=== PATIENT | female | born 1965 | race Caucasian/White ===

== ENCOUNTER 2019-10-06 19:29 | Emergency (ER) | payer SELFPAY ==
--- NOTE | 2019-10-06 19:41 | EDM.PDOC ---
ED HPI GENERAL MEDICAL PROBLEM - General Chief Complaint: General Stated Complaint: MEDICAL CLEARANCE-LAW ENFORCEMENT Time Seen by Provider: 10/06/19 19:31 Source of Information: Reports: Patient History Limitations: Reports: No Limitations - History of Present Illness INITIAL COMMENTS - FREE TEXT/NARRATIVE: HISTORY AND PHYSICAL: History of present illness: Patient is a 54-year-old female who presents to the emergency room with law enforcement for medical clearance exam. Patient currently has no complaints or concerns. Law enforcement brought her for evaluation as the patient states she was indirectly exposed to COVID-19 a few weeks ago, she states she is finishing her self quarantine although has been asymptomatic. Patient denies any fever, chills, headache, change in vision, syncope or near syncope. Denies any chest pain, back pain, shortness of breath or cough. Denies any GI or symptoms. Patient has been eating and drinking appropriately. Denies any alcohol or drug abuse. Review of systems: As per history of present illness and below otherwise all systems reviewed and negative. Past medical history: As per history of present illness and as reviewed below otherwise noncontributory. Surgical history: As per history of present illness and as reviewed below otherwise noncontributory. Social history: See social history for further information Family history: As per history of present illness and as reviewed below otherwise noncontributory. Physical exam: General: Developed and well-nourished 54-year-old female. Alert and oriented. Nontoxic-appearing and in no acute distress. Vital signs are stable and have been reviewed by me. Patient is accompanied by law enforcement and currently in hand cuffs. HEENT: Atraumatic, normocephalic, pupils equal and reactive bilaterally, negative for conjunctival pallor or scleral icterus, mucous membranes moist, TMs normal bilaterally, throat clear, neck supple, nontender, trachea midline. No drooling or trismus noted. No meningeal signs. No hot potato voice noted. Lungs: Clear to auscultation, breath sounds equal bilaterally, chest nontender. Heart: S1S2, regular rate and rhythm without overt murmur Abdomen: Soft, nondistended, nontender. Skin: Intact, warm, dry. No lesions or rashes noted. Extremities: Atraumatic, moves all extremities per self without difficulty or deficits, negative for cords or calf pain. Neurovascular unremarkable. Neuro: Awake, alert, oriented. Cranial nerves II through XII unremarkable. Cerebellum unremarkable. Motor and sensory unremarkable throughout. Exam n onfocal. Notes: Patient's vital signs are stable. Her physical exam is unremarkable. Patient is asymptomatic and declines wanting any diagnostics at this time. Patient will be discharged into the custody of law enforcement. Supportive care measures were reviewed and discussed. Voices understanding and is agreeable to plan of care. Denies any further questions or concerns at this time. Diagnostics: None Therapeutics: None Prescription: None Impression: Encounter for medical screening exam. Plan: 1. Please use Tylenol and/or Ibuprofen as needed for pain and fever management. 2. Please follow up with your primary care provider. 3. Return to the ED as needed as discussed. Definitive disposition and diagnosis as appropriate pending reevaluation and review of above. - Related Data Allergies Allergy/AdvReac Type Severity Reaction Status Date / Time No Known Allergies Allergy Verified 10/06/19 19:49 Home Meds: Home Meds . [No Known Home Meds] 10/06/19 [History] ED ROS GENERAL - Review of Systems Review Of Systems: Comprehensive ROS is negative, except as noted in HPI. ED EXAM, GENERAL - Physical Exam Exam: See Below (See dictation) Course - Vital Signs Last Recorded V/S: Last Vital Signs Temp 98.1 F 10/06/19 19:45 Pulse 94 10/06/19 19:45 Resp 18 10/06/19 19:45 BP 140/90 10/06/19 19:45 Pulse Ox 99 10/06/19 19:45 Departure - Departure Time of Disposition: 19:46 Disposition: Home, Self-Care 01 Clinical Impression: Encounter for medical screening examination - Discharge Information Instructions: Medical Screening Exam Referrals: PCP,None [Primary Care Provider] - Forms: ED Department Discharge Additional Instructions: The following information is given to patients seen in the emergency department who are being discharged to home. This information is to outline your options for follow-up care. We provide all patients seen in our emergency department with a follow-up referral. The need for follow-up, as well as the timing and circumstances, are variable depending upon the specifics of your emergency department visit. If you don't have a primary care physician on staff, we will provide you with a referral. We always advise you to contact your personal physician following an emergency department visit to inform them of the circumstance of the visit and for follow-up with them and/or the need for any referrals to a consulting specialist. The emergency department will also refer you to a specialist when appropriate. This referral assures that you have the opportunity for follow-up care with a specialist. All of these measure are taken in an effort to provide you with optimal care, which includes your follow-up. Under all circumstances we always encourage you to contact your private physician who remains a resource for coordinating your care. When calling for follow-up care, please make the office aware that this follow-up is from your recent emergency room visit. If for any reason you are refused follow-up, please contact the [facility] Emergency Department at and asked to speak to the emergency department charge nurse. [facility] [address] [place] [id number] [id number] Thank you for choosing the [facility] emergency department in [place] for your medical needs today. It was a pleasure caring for you. Today you were seen in the emergency department for medical screening exam. 1. Please use Tylenol and/or Ibuprofen as needed for pain and fever management. 2. Please follow up with your primary care provider. 3. Return to the ED as needed as discussed. Sepsis Event Note (ED) - Focused Exam Vital Signs: Vital Signs Temp Pulse Resp BP Pulse Ox 10/06/19 19:45 98.1 F 94 18 140/90 99
== END 2019-10-06 20:04 ==
LOC: MW.ED 19:29
DX: Z02.89 Encounter for other administrative examinations (principal)
CPT/HCPCS: 99282; 99283

== ENCOUNTER 2020-02-22 01:25 | Observation (INO) | payer OTHER ==
[2020-02-22] MEDS ORDERED: Acetaminophen 500 MG Tab PO ONE (01:29)
[2020-02-22] MEDS ORDERED: Morphine 2 MG/ML SYRINGE IVPUSH ONE (01:29)
[2020-02-22] MEDS ORDERED: Ketorolac 30 MG/ML SDV IVPUSH ONE (01:29)
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
[2020-02-22] MEDS ORDERED: Lidocaine 5% Oint 35.44 GM Tube TOP ONE (02:08)
[2020-02-22] MEDS ORDERED: Bacitracin Oint 1 GM U/D Packet TOP ONE (02:08)
[2020-02-22] MEDS ORDERED: LORazepam 2 MG/ML SDV IVPUSH ONE (02:09)
[2020-02-22 02:13] LABS: BLOOD UREA NITROGEN,BUN 17 mg/dL (7.0-18.0); CARBON DIOXIDE,CO2 24.5 mmol/L (21.0-32.0); CHLORIDE,CL 100 mmol/L (98-107); GLUCOSE RANDOM 131 mg/dL (74-106); POTASSIUM,K 3.9 mmol/L (3.5-5.1); SODIUM,NA 138 mmol/L (136-145)
[2020-02-22] MEDS ORDERED: Bacitracin Oint 28.35 GM Tube TOP STA (02:15)
[2020-02-22] MEDS ORDERED: Lidocaine 2% Jelly 30 ML Tube STA (02:24)
[2020-02-22] MEDS ORDERED: Lactated Ringers 1,000 ML IV SCH (02:45)
[2020-02-22 02:52] LABS: ACETAMINOPHEN <2.0 ug/mL
[2020-02-22] MEDS ORDERED: diphenhydrAMINE 50 MG/ML SDV IVPUSH ONE (04:33)
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
[2020-02-22] MEDS ORDERED: Acetaminophen 500 MG Tab PO PRN (10:12)
[2020-02-22] MEDS ORDERED: Ibuprofen 400 MG Tab PO PRN (10:13)
[2020-02-22] MEDS ORDERED: Aloe Vera/Sodium Chloride Gel 14.1 GM Tube NAS SCH (10:15)
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
== END 2020-02-22 16:00 | disposition home or self-care (01) ==
LOC: MW.ED 01:25 → MW.MS 02:39
PROVIDERS: ADMIT Internal Medicine; ATTEND Internal Medicine
DX: T24.109A Burn of first degree of unspecified site of unspecified lower limb, except ankle and foot, initial encounter (principal); T31.11 Burns involving 10-19% of body surface with 10-19% third degree burns; F17.210 Nicotine dependence, cigarettes, uncomplicated; D72.829 Elevated white blood cell count, unspecified; X12.XXXA Contact with other hot fluids, initial encounter; Z79.899 Other long term (current) drug therapy; Z20.828 Contact with and (suspected) exposure to other viral communicable diseases
CPT/HCPCS: 36415; 80048; 80305; 80307; 85025; 87635; A9270; J1885; J2060; J2270; J7120; 16020; 96374; 96375; 99283; 99284-25; U0002